=== PATIENT | female | born 1975 | race Caucasian/White ===

== ENCOUNTER 2016-09-27 08:53 | Emergency (ER) | payer SELFPAY ==
[~2016-09-27 08:53] MED LIST: LORT7 PO; LORTAB PO
== END 2016-09-27 10:31 | disposition home or self-care (01) ==
LOC: ER 08:53
DX: M25.551 Pain in right hip (principal); M79.604 Pain in right leg; M79.1 Myalgia; Z79.899 Other long term (current) drug therapy
CPT/HCPCS: 73501-RT; 73552-RT; 99284; A9270-GY; J1885